=== PATIENT | male | born 1975 | race Caucasian/White ===

== ENCOUNTER 2023-03-07 10:10 | Day surgery (SDC) | payer BC ==
[~2023-03-07 10:10] MED LIST: Propofol 200 MG/20 ML SDV ONE; Sodium Chloride 0.9% 10 ML Syringe FLUSH PRN; Sodium Chloride 0.9% 2.5 ML Syringe FLUSH PRN; Sodium Chloride 0.9% 20 ML SDV IV PRN
[2023-03-07] MEDS ORDERED: Lactated Ringers 1,000 ML IV SCH (11:45)
[2023-03-07] MEDS ORDERED: fentaNYL 100 MCG/2 ML SDV ONE (11:48)
[2023-03-07] MEDS ORDERED: Propofol 200 MG/20 ML SDV ONE (11:48)
[2023-03-07 12:59] VITALS: BP 139/78; PULSE 80
[2023-03-07] MEDS ORDERED: cefOXitin 1 GM Vial ONE (14:25)
[2023-03-07] MEDS ORDERED: Ketorolac 30 MG/ML SDV ONE (14:28)
[2023-03-07] MEDS ORDERED: Rocuronium Bromide 50 MG/5 ML Syringe ONE (14:28)
[2023-03-07] MEDS ORDERED: Ondansetron 4 MG/2 ML SDV ONE (14:28)
[2023-03-07] MEDS ORDERED: Sugammadex Sodium 200 MG/2 ML VIAL ONE (14:49)
[2023-03-07] MEDS ORDERED: Lidocaine 2% 5 ML SDV ONE (14:50)
== END 2023-03-07 13:00 | disposition home or self-care (01) ==
LOC: MW.SDS 10:10
PROVIDERS: ATTEND Surgery
DX: Z12.11 Encounter for screening for malignant neoplasm of colon (principal); K63.5 Polyp of colon; K64.9 Unspecified hemorrhoids; E78.00 Pure hypercholesterolemia, unspecified; M17.12 Unilateral primary osteoarthritis, left knee; Z80.0 Family history of malignant neoplasm of digestive organs; Z79.899 Other long term (current) drug therapy; Z87.09 Personal history of other diseases of the respiratory system; Z87.891 Personal history of nicotine dependence
CPT/HCPCS: 45380; J0694; J1885; J2405; J2704; J3010; J3490; J7120; 00812